=== PATIENT | male | born 1965 | race African-American/Black ===

== ENCOUNTER 2021-03-09 16:08 | Emergency (ER) | payer OTHER ==
[2021-03-09 16:26] VITALS: BP 134/81; PULSE 82; TEMP 97.8; BMI 35.4
== END 2021-03-09 18:32 | disposition home or self-care (01) ==
LOC: JERFT 16:08
PROC: 0Y9 Anatomical Regions, Lower Extremities, Drainage (ICD-10-PCS; principal; 2021-03-09)
DX: L02.214 Cutaneous abscess of groin (principal)
CPT/HCPCS: 99283-25